=== PATIENT | male | born 1995 | race Caucasian/White ===

== ENCOUNTER 2016-09-05 11:47 | Emergency (ER) | payer SELFPAY ==
[~2016-09-05] VITALS: Ht 182.9 cm; Wt 95.0 kg
[~2016-09-05 11:47] MED LIST: NO ROUTINE MEDS
[2016-09-05 11:51] VITALS: Ht 182.9 cm; Wt 95.0 kg
--- OUTSIDE RECORDS SUMMARY | 2016-09-05 11:52 | XMS REPORT | Continuity of Care Document ---
Author Author [facility] Organization [facility] Address Unknown Phone Unavailable Support Name Relationship Address Phone ROBBIE MILES MD Caregiver [address] [place] [address] [place] [id number] JAN DE SOUZA Next Of Kin [address] [place] [address] Insurance Providers Payer Name Policy Number Subscriber Name Relationship Standard Wps [id number] Jan Arteaga 17 Child Problems Medical Problems Problem Onset Date Status Gastroenteritis Unknown Active Gastroenteritis Unknown Active Medications Medication Dose Route Sig Days/Qty Instructions Order Date Discontinued Date Status [None] 09/27/11 Active Ondansetron 4 Mg PO Q6H/0300,0900,1500,2100 PRN NAUSEA 4 Qty Oral disintegrating tablet 07/15/14 Active Social History Social History Problem Response Recorded Date/Time Chewing Tobacco Status No 07/15/2014 7:36pm Hx Substance Use No 07/15/2014 7:36pm Hx Alcohol Use No 07/15/2014 7:36pm Tobacco Usage none 07/16/2014 3:46am Query Response Start Date Stop Date Smoking Status Never smoker Hospital Discharge Instructions No hospital discharge instructions. Plan of Care No plan of care. Functional Status Query Response Date Recorded Physical Hygiene Self July 15, 2014 7:36pm Disabilities None July 15, 2014 7:36pm Devices Used None July 15, 2014 7:36pm Dressing Self July 15, 2014 7:36pm Ambulation Self July 15, 2014 7:36pm Diet Self July 15, 2014 7:36pm Mental Status Alert July 15, 2014 9:11pm Disabilities None July 15, 2014 7:36pm Devices Used None July 15, 2014 7:36pm Physical Hygiene Self July 15, 2014 7:36pm Dressing Self July 15, 2014 7:36pm Ambulation Self July 15, 2014 7:36pm Diet Self July 15, 2014 7:36pm Allergies, Adverse Reactions, Alerts Allergen Type Severity Reaction Status Last Updated No Known Allergies Active 07/15/14 Immunizations Name Given Type Hx Influenza Vaccination Y 2013 Historical Hx Tetanus, Diptheria, Pertussis Y 06/2013 Historical Hx Influenza Vaccination Y 2013 Historical Hx Tetanus, Diptheria, Pertussis Y 06/2013 Historical Vital Signs Acute Vital Signs Vital Response Date/Time Pulse Rate (adult) 103 bpm (60 - 100) Respiratory Rate 24 breaths/min (10 - 20) O2 Sat by Pulse Oximetry 100 % (90 - 100) Blood Pressure 97/54 mm Hg Height 6 ft 0 in Weight 175 lb Body Mass Index 23.0 kg/m^2 Results Test Source Date Result Interp. Ref. Range Comments Alanine Aminotransferase (ALT/SGPT) July 15, 2014 7:38pm 36 U/L N 21- 72 Albumin July 15, 2014 7:38pm 4.0 G/DL N 3.5-5.0 Albumin/Globulin Ratio July 15, 2014 7:38pm 1.3 RATIO N 1.1-2.2 Alkaline Phosphatase July 15, 2014 7:38pm 63 U/L N 38-126 Anion Gap July 15, 2014 7:38pm 11 MEQ/L N 5-15 Aspartate Amino Transf (AST/SGOT) July 15, 2014 7:38pm 21 U/L N 17-59 BUN/Creatinine Ratio July 15, 2014 7:38pm 15 RATIO N 6-26 Band Neutrophils # July 15, 2014 7:38pm 1.3 T/MM3 - Band Neutrophils % July 15, 2014 7:38pm 6.0 % N 0-6 Blood Urea Nitrogen July 15, 2014 7:38pm 12.0 MG/DL N 9-20 Calcium Level July 15, 2014 7:38pm 9.0 MG/DL N 8.4-10.2 Calculated Osmolality July 15, 2014 7:38pm 269 MOSM/KG N 261-280 Carbon Dioxide Level July 15, 2014 7:38pm 27 MEQ/L N 22-30 Chemistry Specimen Hemolysis July 15, 2014 7:38pm < 15 0-25 0-25: No Hemolysis.26-70: Slight Hemolysis - can falsely elevate K and Urine Protein. 71-285: Moderate Hemolysis - can falsely elevate K, Troponin I, CA 19-9, PTH, CSF GLucose, and Urine Protein, and can falsely decrease Phenytoin. 286-999: Gross Hemolysis - can falsely elevate K, Troponin I, CA 19-9, PTH, CSF Glucose, and Urine Protine, and can falsely decrease Phenytoin. Recommend specimen recollection. Chloride Level July 15, 2014 7:38pm 102 MEQ/L N 98-107 Creatinine July 15, 2014 7:38pm 0.8 MG/DL N 0.8-1.5 Differential Total Cells Counted April 07, 2010 4:05pm 50 % - Eosinophils # (Manual) July 15, 2014 7:38pm 0.2 T/MM3 N 0-0.5 Eosinophils % (Manual) July 15, 2014 7:38pm 1.0 % N 0-4 Globulin July 15, 2014 7:38pm 3.1 G/DL N 2.4-3.6 Glomerular Filtration Rate Calc July 15, 2014 7:38pm 122 - Glucose Level July 15, 2014 7:38pm 102 MG/DL N 75-110 Group A Streptococcus Screen March 18, 2012 8:45am Negative - Strep culture confirmation to follow Hematocrit July 15, 2014 7:38pm 47.7 % N 41-53 Hemoglobin July 15, 2014 7:38pm 15.8 GM/DL N 13.5-17.5 Icterus Index July 15, 2014 7:38pm < 2 0-7 Lipase July 15, 2014 7:38pm 57 U/L N 23-300 Lymphocytes # (Manual) July 15, 2014 7:38pm 0.6 T/MM3 L 1-4.8 Lymphocytes % (Manual) July 15, 2014 7:38pm 3.0 % L 23-45 Mean Corpuscular Hemoglobin July 15, 2014 7:38pm 29.0 UUG N 26-34 Mean Corpuscular Hemoglobin Concent July 15, 2014 7:38pm 33.1 GM/DL N 31-37 Mean Corpuscular Volume July 15, 2014 7:38pm 87.7 UM3 N 80-100 Mean Platelet Volume July 15, 2014 7:38pm 9.0 UM3 L 9.4-12.4 Monocytes # (Manual) July 15, 2014 7:38pm 0.4 T/MM3 N 0-0.8 Monocytes % (Manual) July 15, 2014 7:38pm 2.0 % N 0-9.0 Neutrophils # (Manual) July 15, 2014 7:38pm 18.4 T/MM3 H 1.8-7.7 Neutrophils % (Manual) July 15, 2014 7:38pm 88.0 % H 33-66 Platelet Count July 15, 2014 7:38pm 306 T/MM3 N 130-400 Potassium Level July 15, 2014 7:38pm 4.1 MEQ/L N 3.6-5 RDW Standard Deviation July 15, 2014 7:38pm 45.1 FL N 36.9-50.2 Red Blood Count July 15, 2014 7:38pm 5.44 M/MM3 N 4.50-5.90 Red Cell Morphology Comment July 15, 2014 7:38pm Normal - Sodium Level July 15, 2014 7:38pm 140 MEQ/L N 134-144 Total Bilirubin July 15, 2014 7:38pm 0.80 MG/DL N 0.20-1.30 Total Protein July 15, 2014 7:38pm 7.1 G/DL N 6.3-8.2 Turbidity July 15, 2014 7:38pm < 20 0-20 Urinalysis Comment July 15, 2014 8:51pm Microscopic not ind. - Has specimen been collected/obtained? Y Urine Bilirubin July 15, 2014 8:51pm Negative - Has specimen been collected/obtained? Y Urine Blood July 15, 2014 8:51pm Negative - Has specimen been collected/obtained? Y Urine Collection Type July 15, 2014 8:51pm Voided-not cc-midstr - Has specimen been collected/obtained? Y Urine Color July 15, 2014 8:51pm Yellow - Has specimen been collected/obtained? Y Urine Glucose (UA) July 15, 2014 8:51pm Negative - Has specimen been collected/obtained? Y Urine Ketones July 15, 2014 8:51pm 1+ H - Has specimen been collected/ obtained? Y Urine Leukocyte Esterase July 15, 2014 8:51pm Negative - Has specimen been collected/obtained? Y Urine Microscopic Not Indicated April 07, 2010 6:52pm Not indicated - Has specimen been collected/obtained? Y Urine Nitrite July 15, 2014 8:51pm Negative - Has specimen been collected/obtained? Y Urine Protein July 15, 2014 8:51pm Negative - Has specimen been collected/obtained? Y Urine Specific [place] July 15, 2014 8:51pm 1.020 - Has specimen been collected/obtained? Y Urine Turbidity July 15, 2014 8:51pm Clear - Has specimen been collected/obtained? Y Urine Urobilinogen July 15, 2014 8:51pm 0.2 EU/DL - Has specimen been collected/obtained? Y Urine pH July 15, 2014 8:51pm 6.0 - Has specimen been collected/ obtained? Y White Blood Count July 15, 2014 7:38pm 20.9 T/MM3 H 4.5-11.0 Group A Streptococcus Culture Throat March 18, 2012 9:01am Procedures No known history of procedures. Encounters Encounter Location Date/Time Departed Emergency Room [facility] 07/15/14 6:30pm Recent Diagnosis
--- NOTE | 2016-09-05 12:00 | NUR ---
PORT XRAY PORT. HAND XRAY IN ROOM.
--- NOTE | 2016-09-05 12:04 | NUR ---
PROVIDER DR. GIOVANA SCHWARTZ APRN IN ROOM WITH PT.
--- OUTSIDE RECORDS SUMMARY | 2016-09-05 12:10 | XMS REPORT | Continuity of Care Document ---
Author Author [facility] Organization [facility] Address Unknown Phone Unavailable Support Name Relationship Address Phone ROBBIE MILES MD Caregiver [address] [place] [address] [place] [address] JAN DE SOUZA Next Of Kin [address] [place] [address] Insurance Providers Payer Name Policy Number Subscriber Name Relationship Standard Wps [id number] Jan Arteaga 17 Child Problems Medical Problems [...] Has specimen been collected/obtained? Y Urine Specific [place] July 15, 2014 8:51pm 1.020 - Has [...] Encounters Encounter Location Date/Time Departed Emergency Room [facility] 07/15/14 6:30pm Recent Diagnosis
[2016-09-05] MEDS ORDERED: LIDOCAINE 1% (10mg/ml) 30ml SDV INFIL ONE (12:15)
--- NOTE | 2016-09-05 12:45 | NUR ---
PROVIDER/SUTURES GIOVANA SCHWARTZ IN ROOM WITH PT SUTURING.
--- NOTE | 2016-09-05 12:55 | NUR ---
HYPOTENSIVE/SUTURING BLOOD PRESSURE TAKEN WHILE PT IS BEING SUTURED HAS DECREASED AGAIN. PT DENIES ANY C/O AT THIS TIME, IS LYING SUPINE AND SHOWS NO SIGNS OF DISTRESS. GIOVANA SCHWARTZ APRN WITH PT, WILL RE-EVALUATE ONCE PROCEEDURE IS COMPLETED.
--- NOTE | 2016-09-05 13:00 | NUR ---
REPORT REPORT GIVEN TO GERBER COX.
--- NOTE | 2016-09-05 13:02 | ERPDOC ---
Departure Disposition Decision Date: Sep 05, 2016 Disposition Decision Time: 13:00 Disposition: 01 DISCHARGED HOME, SELF-CARE Impression Impression Impression: Primary Impression: Laceration of thumb Encounter type: initial encounter Laterality: right Qualified Codes: S61.011A - Laceration without foreign body of right thumb without damage to nail , initial encounter Severity: Moderate Condition: Stable Seen By: Mid-level only Patient Instructions: Laceration (ED) Problems/Meds/Labs Reviewed?: Yes Medications reviewed and manag: Yes Additional Instructions: Wash the area daily with soap and water. Cover with antibiotic ointment and gauze. Keep covered while at work. Take the Keflex as prescribed for infection prevention. Elevate and take Ibuprofen and/or Tylenol as needed for pain. Have the sutures taken out in the next 10-14 days with your primary care provider. Follow up care ordered?: Yes Mental Status: Alert, Oriented Scripts Cephalexin (Cephalexin) 500 Mg Capsule 1 CAP PO TID, #21 CAP 0 Refills Prov: KASEY SCHWARTZ [employer] 09/05/16 HPI - Skin General General Chief Complaint: Laceration Stated Complaint: LACERATION THUMB Time Seen by Provider: 12:00 Source: patient Exam Limitations: no limitations HPI - Skin General Initial Comments He was at work today and was cutting some plywood. The table saw bucked and pulled his thumb on the right hand into the blade. He has a laceration on the thumb of the hand. Last tetanus was 4 years ago. Denies any numbness or tingling or difficulty with ROM of the thumb. Occurred At: work Onset: Rapid Duration: 1 hr Severity: moderate Location: extremities (right thumb pad) Possible Cause: other (cut with table saw) Associated Symptoms: denies symptoms Hx of Similar Symptoms: No Allergies: Coded Allergies: No Known Allergies (Unverified , 09/05/16) Past History Past Medical History Pt denies signifigant PMH Surgical History General: tonsils Vaccines Hx Influenza Vaccination: Yes (2013) Hx Tetanus, Diptheria, Pertuss: Yes (06/2013) Social History Smoking Status: Never smoker Substance Use Type: does not use Alcohol Intake: none Review of Systems Musculoskeletal General: pain (right thumb pad), DENIES: joint pain, joint swelling, tenderness Integumentary Skin: other (Laceration on the right thumb pad) Neurological General: DENIES: numbness, tingling Physical Exam General Vitals and Pain First Documented Vital Signs Date Time Temp Pulse Resp B/P Pulse Ox O2 Delivery O2 Flow Rate FiO2 09/05/16 11:51 97.2 84 20 64/44 99 Room Air Weight: Kilograms: 95.000 Height (feet): 6 Height (inches): 0 Triage Pain Scale: Musculoskeletal (brief) Musculoskeletal Brief: FOUND: tenderness (at site of the laceration), NOT FOUND : deformity, loss of motion (full ROM of the right thumb) Differential Diagnoses Considering: Laceration, Other (open fracture, tendon injury) Procedures Procedures Performed Procedures Performed: Laceration Repair Laceration/Wound Repair Wound/Laceration Repair : Wound Location: upper extremity (right thumb pad) Wound Length (cm): 3.5 Depth, Shape: subcutaneous, linear Explored: clean Irrigated: saline Prep: chlorasept Anesthesia: 1% Lidocaine Type of Block: digital Repaired With: Sutures Suture Size: 4:0 Suture Type: prolene Number of Sutures: 10 Extensor Tendon Repair?: No Progress Results/Orders Orders Procedure Category Date Status Time Fingers Right 2 View RAD 09/05/16 Resulted MIN Lidocaine 1% PHA 09/05/16 Complete (Xylocaine 1%) 12:15 Medications Current ED Medications Lidocaine HCl (Xylocaine 1%) 100 mg O ONCE INFIL Last administered on t 12:12; Start 09/05/16 at 12:15; Stop 09/05/16 at 12:16; Status DC Progress Progress Sutures out in 10-14 days with PCP. Wash daily with soap and water. Keep covered with antibiotic ointment. Keflex for infection prevention. xray does not show any bony involvement Xray Xray : Reason for Exam: thumb injury with saw Xray: Finger(s) R Interpretation: Normal KASEY SCHWARTZ APRN Sep 05, 2016 13:02
[2016-09-05] MEDS ORDERED: CEPH500C2 PO (13:04)
[2016-09-05 13:15] VITALS: BP 104/60; PULSE 72; RESP 16; TEMP 97.2; O2SAT 100
--- NOTE | 2016-09-05 13:17 | DI ---
Indication: ITS.REASON: right thumb laceration, table saw PROCEDURE: FINGERS RIGHT 2 VIEW MIN: Encounter: Initial Comparison: None Findings: There is no acute fracture, dislocation or malalignment identified. No radiopaque foreign body identified. Soft tissue laceration. Impression: No acute osseous abnormality. .
== END 2016-09-05 13:15 | disposition home or self-care (01) ==
LOC: ED 11:47
DX: S61.011A Laceration without foreign body of right thumb without damage to nail, initial encounter (principal); W29.8XXA Contact with other powered hand tools and household machinery, initial encounter; Y93.89 Activity, other specified; Y92.89 Other specified places as the place of occurrence of the external cause; Y99.0 Civilian activity done for income or pay
CPT/HCPCS: 96372